=== PATIENT | female | born 1965 | race Caucasian/White ===

== ENCOUNTER 2017-11-01 06:57 | Day surgery (SDC) | payer MEDICAID ==
[~2017-11-01] VITALS: Ht 157.5 cm; Wt 80.5 kg
--- NOTE | ~2017-11-01 | OP ---
PATIENT NAME: PORSHA BURDICK MEDICAL RECORD: [id number] :63 LOCATION:[facility] ADMISSION DATE: SURGEON: AFTAB FERRARI DO DATE OF OPERATION: 11/01/2017 PROCEDURE: Colonoscopy with polypectomy. INDICATIONS FOR PROCEDURE: Family history positive for colon cancer and history of colon polyps. Her last colonoscopy was 10/17/2014 with a tubular adenomatous polyp removed. SCOPE: Olympus video pediatric colonoscope. MEDICATIONS: Propofol 430 mg IV per anesthesia. WITHDRAWAL TIME: 14 minutes. ESTIMATED BLOOD LOSS: Minimal. COMPLICATIONS: None. FINDINGS: Informed consent was given. The patient was made comfortable with the above medication. After reaching an adequate level of sedation by slow IV push, the patient was placed on her left side. A digital rectal examination was performed and was normal. The endoscope was then advanced under direct visualization through the rectum to the cecum with visualization of the appendiceal orifice and ileocecal valve. The scope was slowly withdrawn and mucosa was carefully examined. The prep quality was poor with multiple areas of difficult to visualize mucosa due to pooling of fluid along with solid debris which could not be cleared adequately. There were 2 polyps to visualize on today's examination. The first was located in the cecum. It was a benign appearing sessile polyp, which measured approximately 5 mm in diameter. It was removed using a hot snare in 1 piece and completely retrieved. A second polyp was a benign appearing sessile polyp, which measured approximately 6 mm and was located in the transverse colon. It was removed using hot snare in 1 piece and completely retrieved. Retroflexion was performed in the rectum with visualization of grade I-II internal hemorrhoids without bleeding. Again, multiple areas were difficult to visualize the entire wall of the mucosa. Attempts were made to clear the fluid and stool from the colon unsuccessfully due to solid fecal debris. The endoscope was withdrawn from the patient. The patient tolerated the procedure well and there were no complications. IMPRESSION: 1. Two benign-appearing polyps as described above removed using a hot snare. 2. Internal hemorrhoids without active bleeding. 3. Inadequate prep to completely visualize the entire colon. PLAN AND RECOMMENDATIONS: 1. Discharge home when recovery parameters are met. 2. Follow up biopsy specimen results. 3. Continue current diet. 4. Continue current medications. 5. Recall colonoscopy within 1-2 years due to the inadequate prep on today's examination, family history of colon cancer, and personal history of colon polyps. OPERATIVE REPORT [id number] PORSHA BURDICK TRANSINT:[id number] Voice Confirmation ID: [id number] DOCUMENT ID: [id number] AFTAB FERRARI DO at 1524 CC: [id number] DICTATION DATE: 11/01/17 0933 CAN INTAKE WORKER: 11/01/17 1246 [facility] 11/01/[address] [address]
[~2017-11-01 06:57] MED LIST: ATRIPLA TABLET1 TAB PO; BAYER CHEWABLE81 MG PO; CATAPRES0.1 MG PO; CELEXA10 MG PO; FLOVENT DI50 MCG/DIS INH; HYDROCHLOROTHIA25 MG PO; HYDROCODONE-APA1 TAB PO; IBUPROFEN800 MG PO; LINZESS145 MCG PO; MOBIC7.5 MG PO; PRILOSEC20 MG PO; SEROQUEL50 MG PO; TRAZODONE HCL150 MG PO; VENTOLIN HFA18 GM INH; XANAX1 MG PO
[2017-11-01] MEDS ORDERED: HYSINGLA ER20 MG PO (07:39)
[2017-11-01] MEDS ORDERED: ULTRAM50 MG PO (07:40)
[2017-11-01] MEDS ORDERED: AMITRIPTYLINE H50 MG PO (07:40)
[2017-11-01 07:45] VITALS: BP 114/78; Ht 157.5 cm; Wt 80.5 kg
[2017-11-01 08:50] LABS: BASOPHILS 0.4 % (0-2); EOSINOPHILS 1.6 % (0-7); HEMATOCRIT 38.9 % (36.0-48.0); HEMOGLOBIN 13.6 g/dL (12-16); IMMATURE GRANULOCYTES 0.2 % (0-5); LYMPHOCYTES 34.2 % (15-50); MCH 32.1 pg (26.0-34.0); MCV 91.7 fL (80.0-100.0); MEAN PLATELET VOLUME 9.8 fL (7.4-10.4); MONOCYTES 9.8 % (2-11); NEUTROPHILS 53.8 % (40-80); PLATELET COUNT 176 10x3/uL (130-400); RBC 4.24 10x6/uL (4.00-5.40); RDW 12.5 % (11.5-14.5); WBC 5.6 10x3/uL (4.8-10.8)
[2017-11-01 09:00] LABS: INR 1.1 (0.85-1.17); PROTIME 13.8 SECONDS (11.6-15.0)
[2017-11-01 09:13] LABS: ALBUMIN 3.4 g/dL (3.4-5.0); ANION GAP 15.6 mmol/L (8-16); BILIRUBIN - TOTAL 0.32 mg/dL (0.2-1.3); CALCIUM 8.6 mg/dL (8.5-10.1); CARBON DIOXIDE 21.4 mmol/L (21.0-32.0); CREATININE - SERUM 0.9 mg/dL (0.6-1.3)
== END 2017-11-01 10:20 | disposition home or self-care (01) ==
LOC: D.OPS 06:57
PROVIDERS: Anesthesiology
DX: D12.0 Benign neoplasm of cecum (principal); D12.3 Benign neoplasm of transverse colon; F17.200 Nicotine dependence, unspecified, uncomplicated; I10 Essential (primary) hypertension; K21.9 Gastro-esophageal reflux disease without esophagitis; J44.9 Chronic obstructive pulmonary disease, unspecified; Z01.812 Encounter for preprocedural laboratory examination

== ENCOUNTER 2018-02-02 09:51 | Day surgery (SDC) | payer MEDICAID ==
[~2018-02-02] VITALS: Ht 157.5 cm; Wt 78.9 kg
--- NOTE | ~2018-02-02 | OP ---
PATIENT NAME: PORSHA BURDICK MEDICAL RECORD: [id number] :63 LOCATION:D.OPS ADMISSION DATE: SURGEON: AFTAB FERRARI DO DATE OF OPERATION: 02/02/2018 PROCEDURE: Colonoscopy with polypectomy. INDICATIONS FOR PROCEDURE: Personal history of polyps and family history of colon cancer. SCOPE: Olympus video pediatric colonoscope. MEDICATIONS: Propofol 400 mg IV per anesthesia. WITHDRAWAL TIME: 9 minutes. ESTIMATED BLOOD LOSS: Minimal. COMPLICATIONS: None. FINDINGS: Informed consent was given. The patient was made comfortable with the above medication. After reaching an adequate level of sedation by slow IV push, the patient was placed on her left side. A digital rectal examination was performed and was normal. The endoscope was then advanced under direct visualization through the rectum to the cecum, confirmed by the appendiceal orifice and the ileocecal valve. The endoscope was slowly withdrawn. Mucosa was carefully examined. The prep quality was fair. There was a single polyp located in the cecum, which was benign appearing and sessile. It measured approximately 4 mm in diameter. It was removed using hot forceps in 1 piece and completely retrieved. There was evidence of mild diverticulosis involving the sigmoid colon. Retroflexion was performed in the rectum with visualization of grade II internal hemorrhoids without bleeding. The endoscope was then withdrawn from the patient. The patient tolerated the procedure well and there were no complications. IMPRESSION: 1. Single benign appearing cecal polyp removed with hot forceps. 2. Mild diverticulosis of the sigmoid colon. 3. Grade II internal hemorrhoids without bleeding. PLAN AND RECOMMENDATIONS: 1. Discharge home when recovery parameters are met. 2. Follow up biopsy specimen results. 3. High fiber diet. 4. Continue current medications. 5. Recall colonoscopy in 3 years. TRANSINT:[id number] Voice Confirmation ID: [id number] DOCUMENT ID: [id number] OPERATIVE REPORT [id number] PORSHA BURDICK AFTAB FERRARI DO at 1237 CC: [id number] DICTATION DATE: 02/02/18 1323 HOSIERY MENDER: 02/02/18 1337 [facility] 02/02/18 [place] [address]
[~2018-02-02 09:51] MED LIST changes: +AMITRIPTYLINE H50 MG PO; +HYSINGLA ER20 MG PO; +ULTRAM50 MG PO
[2018-02-02 10:09] LABS: BASOPHILS 0.4 % (0-2); EOSINOPHILS 1.6 % (0-7); HEMATOCRIT 41.4 % (36.0-48.0); IMMATURE GRANULOCYTES 0.1 % (0-5); LYMPHOCYTES 32.9 % (15-50); MCHC 36.2 g/dL (31.0-37.0); MCV 91.2 fL (80.0-100.0); MEAN PLATELET VOLUME 9.6 fL (7.4-10.4); MONOCYTES 6.8 % (2-11); NEUTROPHILS 58.2 % (40-80); PLATELET COUNT 199 10x3/uL (130-400); RBC 4.54 10x6/uL (4.00-5.40); RDW 12.5 % (11.5-14.5); WBC 6.8 10x3/uL (4.8-10.8)
[2018-02-02 11:19] VITALS: BP 122/80; Ht 157.5 cm; Wt 78.9 kg
[2018-02-02 12:22] LABS: ANION GAP 20.1 mmol/L (8-16); CALCIUM 9.3 mg/dL (8.5-10.1); CARBON DIOXIDE 18.2 mmol/L (21.0-32.0); CREATININE - SERUM 0.9 mg/dL (0.6-1.3); POTASSIUM - SERUM 4.3 mmol/L (3.5-5.1)
== END 2018-02-02 14:20 | disposition home or self-care (01) ==
LOC: D.OPS 09:51
PROVIDERS: Anesthesiology
DX: D12.0 Benign neoplasm of cecum (principal); K64.8 Other hemorrhoids; K57.90 Diverticulosis of intestine, part unspecified, without perforation or abscess without bleeding

== ENCOUNTER 2018-02-14 11:20 | Day surgery (SDC) | payer MEDICAID ==
[~2018-02-14] VITALS: Ht 157.5 cm; Wt 75.0 kg
--- NOTE | ~2018-02-14 | OP ---
PATIENT NAME: PORSHA BURDICK MEDICAL RECORD: [id number] :63 LOCATION:[facility] ADMISSION DATE: SURGEON: AFTAB FERRARI DO DATE OF OPERATION: 02/14/2018 PROCEDURE: EGD with biopsies and balloon dilation. INDICATIONS FOR PROCEDURE: Gastroesophageal reflux disease and gastroparesis. SCOPE: Olympus video gastroscope. MEDICATIONS: Propofol 350 mg IV per anesthesia. ESTIMATED BLOOD LOSS: Minimal. COMPLICATIONS: None. FINDINGS: Informed consent was given. The patient was made comfortable with the above medication. After reaching an adequate level of sedation by slow IV push, the patient was placed on her left side. The endoscope was advanced under direct visualization through the mouth to the second portion of the duodenum. The upper, middle, and lower thirds of the esophagus appeared normal. At the GE junction, there was evidence of LA class C, reflux-induced esophagitis with ulcerations present as well as a mild Schatzki ring, which was approximately 16-17 mm in diameter. Cold forceps biopsies were taken of the esophagitis and the Schatzki's ring was dilated up to 20 mm maximum diameter with a CRE dilating balloon. The endoscope was advanced beyond the GE junction into the stomach and retroflexed to view the cardia, where a small sliding type hiatal hernia was present. The fundus and body of the stomach appeared normal. In the antrum and prepyloric region, there were multiple superficial ulcerations which appeared consistent with medication induced ulcers. Random biopsies were taken from multiple areas of the stomach to submit for histopathology and to rule out the presence of H. pylori. The endoscope was advanced beyond the pylorus into the duodenum. The entire examined duodenum appeared normal. The endoscope was then withdrawn from the patient. The patient tolerated the procedure well and there were no complications. IMPRESSION: 1. LA class C, reflux-induced esophagitis. 2. Mild Schatzki's ring dilated to 20 mm maximum diameter with a CRE dilating balloon. 3. Small sliding hiatal hernia. 4. Peptic ulcer disease likely secondary to medication induced ulcerations. PLAN AND RECOMMENDATIONS: 1. Discharge home when recovery parameters are met. 2. Follow up biopsy specimen results. 3. Continue current medications. 4. The patient is already scheduled to see Dr. Vásquez for consideration of hemorrhoidectomy. We will also ask him to evaluate for possible antireflux procedure based on the fact that she continues to have severe reflux which is symptomatic despite PPI therapy. 5. If the reflux procedure is not performed, I will recommend continuing proton pump inhibitor at least 40 mg equivalent daily, consideration of adding a histamine diana in the evening time for further antacid coverage. OPERATIVE REPORT [id number] BURDICKPORSHAN TRANSINT:[id number] Voice Confirmation ID: [id number] DOCUMENT ID: [id number] AFTAB FERRARI DO at 1616 CC: [id number] DICTATION DATE: 02/14/18 1400 TRAIN CLERK: 02/14/18 1433 [facility] 02/14/18 [facility] [address] [place] [address]
[2018-02-14 12:16] LABS: INR 1.07 (0.85-1.17); PROTIME 13.3 SECONDS (11.6-15.0)
[2018-02-14 12:19] LABS: ALBUMIN 3.5 g/dL (3.4-5.0); ALKALINE PHOSPHATASE 170 U/L (46-116); ALT (SGPT) 47 U/L (10-68); APTT 29.1 SECONDS (22.8-39.4); BILIRUBIN - TOTAL 0.31 mg/dL (0.2-1.3); CALC OSMOLALITY 268 mosm/kg (275-300); CALCIUM 8.7 mg/dL (8.5-10.1); CARBON DIOXIDE 25.7 mmol/L (21.0-32.0); CHLORIDE - SERUM 105 mmol/L (98-107); CREATININE - SERUM 0.8 mg/dL (0.6-1.3); GLUCOSE 84 mg/dL (74-106); POTASSIUM - SERUM 4.5 mmol/L (3.5-5.1); PROTEIN - SERUM 8.4 g/dL (6.4-8.2); SODIUM 136 mmol/L (136-145); UREA NITROGEN 8 mg/dL (7-18); eGFR NON AFRICAN AMERICAN 79 mL/min (90-120)
[2018-02-14 12:25] LABS: HEMATOCRIT 40.4 % (36.0-48.0); HEMOGLOBIN 14.2 g/dL (12-16); MCH 32.5 pg (26.0-34.0); MCHC 35.1 g/dL (31.0-37.0); MCV 92.4 fL (80.0-100.0); MEAN PLATELET VOLUME 9.7 fL (7.4-10.4); RBC 4.37 10x6/uL (4.00-5.40); RDW 12.3 % (11.5-14.5); WBC 5.1 10x3/uL (4.8-10.8)
[2018-02-14 12:34] LABS: HCG SERUM NEGATIVE (NEGATIVE)
[2018-02-14 13:12] VITALS: BP 136/90; Ht 157.5 cm; Wt 75.0 kg
== END 2018-02-14 14:45 | disposition home or self-care (01) ==
LOC: D.OPS 11:20
PROVIDERS: Anesthesiology
DX: K21.0 Gastro-esophageal reflux disease with esophagitis (principal); K44.9 Diaphragmatic hernia without obstruction or gangrene; K22.2 Esophageal obstruction; K27.9 Peptic ulcer, site unspecified, unspecified as acute or chronic, without hemorrhage or perforation; K31.84 Gastroparesis; Z01.812 Encounter for preprocedural laboratory examination

== ENCOUNTER 2018-02-23 05:25 | Day surgery (SDC) | payer MEDICAID ==
[2018-02-22 10:20] LABS: BASOPHILS 0.4 % (0-2); EOSINOPHILS 1.4 % (0-7); HEMOGLOBIN 13.5 g/dL (12-16); LYMPHOCYTES 33.6 % (15-50); MCHC 35.5 g/dL (31.0-37.0); MCV 92.9 fL (80.0-100.0); MEAN PLATELET VOLUME 9.5 fL (7.4-10.4); MONOCYTES 6.6 % (2-11); PLATELET COUNT 172 10x3/uL (130-400); RBC 4.09 10x6/uL (4.00-5.40); RDW 12.6 % (11.5-14.5); WBC 5.6 10x3/uL (4.8-10.8)
[2018-02-22 10:34] LABS: APTT 30.8 SECONDS (22.8-39.4); INR 0.98 (0.85-1.17); PROTIME 12.6 SECONDS (11.6-15.0)
[2018-02-22 10:43] LABS: ALBUMIN 3.3 g/dL (3.4-5.0); ANION GAP 12.2 mmol/L (8-16); BILIRUBIN - TOTAL 0.25 mg/dL (0.2-1.3); CALCIUM 8.5 mg/dL (8.5-10.1); CARBON DIOXIDE 23.6 mmol/L (21.0-32.0); POTASSIUM - SERUM 3.8 mmol/L (3.5-5.1); PROTEIN - SERUM 8.6 g/dL (6.4-8.2)
[~2018-02-23] VITALS: Ht 157.5 cm; Wt 79.4 kg
[2018-02-23 06:49] VITALS: BP 141/82; Ht 157.5 cm; Wt 79.4 kg
[2018-02-23] MEDS ORDERED: MIRALAX17 GM PO (08:40)
[2018-02-23] MEDS ORDERED: VALIUM5 MG PO (08:40)
[2018-02-23] MEDS ORDERED: HYDROCODON-ACE1 EAC7 PO (08:41)
== END 2018-02-23 10:30 | disposition home or self-care (01) ==
LOC: D.OPS 05:25 → D.PAN 08:00 → D.OPS 08:45
PROVIDERS: Anesthesiology
DX: K64.9 Unspecified hemorrhoids (principal)

== ENCOUNTER 2019-02-10 10:30 | Day surgery (SDC) | payer MEDICAID ==
[2019-02-09 13:16] LABS: HEMOGLOBIN 13.3 g/dL (12-16); MCH 33.3 pg (26.0-34.0); MCHC 35.9 g/dL (31.0-37.0); MCV 92.5 fL (80.0-100.0); MEAN PLATELET VOLUME 10.1 fL (7.4-10.4); RDW 12.5 % (11.5-14.5); WBC 5.7 10x3/uL (4.8-10.8)
[2019-02-09 13:26] LABS: INR 1.09 (0.85-1.17); PROTIME 13.6 SECONDS (11.6-15.0)
[2019-02-09 13:30] LABS: ALBUMIN 3.4 g/dL (3.4-5.0); ANION GAP 13.6 mmol/L (8-16); BILIRUBIN - TOTAL 0.31 mg/dL (0.2-1.3); CALCIUM 8.4 mg/dL (8.5-10.1); CARBON DIOXIDE 23.4 mmol/L (21.0-32.0); CREATININE - SERUM 1.2 mg/dL (0.6-1.3); PROTEIN - SERUM 8.6 g/dL (6.4-8.2)
[~2019-02-10] VITALS: Ht 157.5 cm; Wt 83.5 kg
[~2019-02-10 10:30] MED LIST changes: +ATRIPLA TABLET PO; +BUSPAR10 MG PO; +CARAFATE1 G PO; +HYDROCODON-ACE1 EAC7 PO; +HYSINGLA ER30 MG PO; +MIRALAX17 GM PO; +PROTONIX20 MG PO; +UROCIT-K10 MEQ; +VALIUM5 MG PO
[2019-02-10 11:56] VITALS: BP 120/76; Ht 157.5 cm; Wt 83.5 kg
[2019-02-10] MEDS ORDERED: HYDROCODON-ACE1 EA10 PO (16:28)
[2019-02-10] MEDS ORDERED: DURICEF500 MG PO (16:31)
--- NOTE | 2019-02-10 17:43 | NUR ---
1650-REC'D FROM RR,SUPINE POSITION,IV PATENT TO RIGHT FOOT AT KVO.AWAKE AND ALERT.TOLERATING ICE CHIPS.
--- NOTE | 2019-02-10 17:44 | NUR ---
1730- IV DISCONTINUED FROM RIGHT FOOT WITH CATH INTACT, DISPOSED INTO SHARPS. TOLERATED WITHOUT COMPLAINTS. COVERED WITH BANDAID. VSS
--- NOTE | 2019-02-10 17:51 | NUR ---
7381-DISCHARGE INSTRUCTIONS REVIEWED WITH PT AND SPOUSE. COPY IN HAND.VERBALIZES UNDERSTANDING WITHOUT QUESTIONS OR CONCERNS. ESCORTED OUT BY OPS VIA W/C.
--- NOTE | 2019-02-11 09:12 | OP ---
PATIENT NAME: PORSHA BURDICK MEDICAL RECORD: [id number] :63 LOCATION:[facility] ADMISSION DATE: SURGEON: WADE STEARNS DO DATE OF OPERATION: 02/10/2019 PROCEDURE PERFORMED: Right middle finger A1 leonel release. PREOPERATIVE DIAGNOSIS: Right trigger finger, middle finger. POSTOPERATIVE DIAGNOSIS: Right trigger finger, middle finger. SURGEON: Wade Stearns DO INDICATIONS: Ms. Burdick is a 53-year-old female that has had a trigger finger for quite some time. This was catching and popping on her just unlocking herself. She has tried injections to no avail and she wanted it released. I informed her of the risks including infection, bleeding, damage to nerves and vessels, need for further surgery, and due to her HIV status, she was at increased risk for infection. She is aware that risks and signed consent. DESCRIPTION OF PROCEDURE: The patient was taken to the operative suite, given a general anesthetic and LMA was placed. The right upper extremity was prepped and draped in sterile fashion. The timeout was performed everyone was in agreement with the correct side, site, patient, and procedure. Once that was done, the incision was marked out over the distal crease in the palm and the incision was made with a #15 blade scalpel and Ragnell was used to dissect down carefully down to the A1 leonel. A1 leonel was exposed. Once it was exposed, it was released with scissors under direct loupe visualization. The tourniquet was then let down. Tendon was pulled out through the incision to ensure it did not catch; any bleeding was coagulated with a bipolar that time. Once the bipolar was used to coagulate, the site was injected with 5 mL of the 0.25% Marcaine with epinephrine and the skin was closed with 5-0 nylon in a horizontal mattress fashion. Adaptic, 4 x 4's, Kerlix, and Coban was then used to dress the wound. She was awakened and taken to recovery in stable condition. BLOOD LOSS: Minimal. COMPLICATIONS: None. TOURNIQUET: Up for 4 minutes. TRANSINT:[id number] Voice Confirmation ID: [id number] DOCUMENT ID: [id number] WADE STEARNS DO at 8714 CC: [id number] DICTATION DATE: 02/10/19 1632 COMMUNITY AFFAIRS MANAGER: 02/10/192130 [facility] 02/10/19 [facility] [address] [place] [id number]
== END 2019-02-10 17:50 | disposition home or self-care (01) ==
LOC: D.OPS 10:30 → D.PAN 14:00 → D.OPS 15:25
PROVIDERS: Anesthesiology; ATTEND Orthopaedic Surgery
DX: M65.331 Trigger finger, right middle finger (principal); Z01.812 Encounter for preprocedural laboratory examination

== ENCOUNTER → 2019-02-28 11:40 | Outpatient (CLI) | payer MEDICAID ==
[2019-02-10 11:56] VITALS: BMI 33.7
[~2019-02-28 11:40] MED LIST changes: +BIKTARVY 50-201 EACH PO; +DURICEF500 MG PO; +HYDROCODON-ACE1 EA10 PO
== END | disposition home or self-care (01) ==
LOC: D.NM 11:40
PROVIDERS: ATTEND Family Medicine
DX: K82.9 Disease of gallbladder, unspecified (principal)

== ENCOUNTER 2019-03-29 06:46 | Day surgery (SDC) | payer MEDICAID ==
[2019-03-28 13:32] LABS: BASOPHILS 0.3 % (0-2); EOSINOPHILS 0.8 % (0-7); HEMATOCRIT 38.9 % (36.0-48.0); HEMOGLOBIN 14.1 g/dL (12-16); IMMATURE GRANULOCYTES 0.1 % (0-5); LYMPHOCYTES 29.4 % (15-50); MCH 33.5 pg (26.0-34.0); MCHC 36.2 g/dL (31.0-37.0); MCV 92.4 fL (80.0-100.0); MEAN PLATELET VOLUME 9.8 fL (7.4-10.4); MONOCYTES 5.2 % (2-11); NEUTROPHILS 64.2 % (40-80); PLATELET COUNT 155 10x3/uL (130-400); RBC 4.21 10x6/uL (4.00-5.40); RDW 12.3 % (11.5-14.5); WBC 7.2 10x3/uL (4.8-10.8)
[2019-03-28 13:48] LABS: ALBUMIN 3.5 g/dL (3.4-5.0); ANION GAP 10.5 mmol/L (8-16); BILIRUBIN - TOTAL 0.3 mg/dL (0.2-1.3); CALCIUM 8.6 mg/dL (8.5-10.1); CARBON DIOXIDE 26.1 mmol/L (21.0-32.0); CREATININE - SERUM 1.2 mg/dL (0.6-1.3); POTASSIUM - SERUM 3.6 mmol/L (3.5-5.1); PROTEIN - SERUM 8.6 g/dL (6.4-8.2)
[2019-03-28 13:53] LABS: INR 1.1 (0.85-1.17); PROTIME 13.7 SECONDS (11.6-15.0)
[~2019-03-29] VITALS: Ht 157.5 cm; Wt 86.8 kg
[2019-03-29 07:45] VITALS: BP 134/87; Ht 157.5 cm; Wt 86.8 kg
--- NOTE | 2019-03-29 09:39 | NUR ---
PATIENT NOTED TO HAVING SPLOTCHY PINK REDDISH AREA ON LOWER ABDOMEN PRIOR TO PREP, JULY.
[2019-03-29] MEDS ORDERED: HYDROCODON-ACE1 EAC7 PO (09:47)
== END 2019-03-29 11:50 | disposition home or self-care (01) ==
LOC: D.OPS 06:46 → D.PAN 09:15 → D.OPS 09:15
PROVIDERS: Anesthesiology; ATTEND Surgery
DX: K81.1 Chronic cholecystitis (principal)

== ENCOUNTER 2019-07-21 05:07 | Day surgery (SDC) | payer MEDICAID ==
[2019-07-20 11:05] LABS: BASOPHILS 0.3 % (0-2); EOSINOPHILS 1.5 % (0-7); HEMATOCRIT 39.4 % (36.0-48.0); IMMATURE GRANULOCYTES 0.3 % (0-5); LYMPHOCYTES 37.1 % (15-50); MCH 32.8 pg (26.0-34.0); MCHC 35.5 g/dL (31.0-37.0); MCV 92.3 fL (80.0-100.0); MEAN PLATELET VOLUME 9.1 fL (7.4-10.4); MONOCYTES 5.2 % (2-11); NEUTROPHILS 55.6 % (40-80); PLATELET COUNT 170 10x3/uL (130-400); RBC 4.27 10x6/uL (4.00-5.40); RDW 12.9 % (11.5-14.5); WBC 7.9 10x3/uL (4.8-10.8)
[2019-07-20 11:17] LABS: ANION GAP 14.3 mmol/L (8-16); CALCIUM 8.5 mg/dL (8.5-10.1); CARBON DIOXIDE 25.1 mmol/L (21.0-32.0); CREATININE - SERUM 1.2 mg/dL (0.6-1.3); POTASSIUM - SERUM 3.4 mmol/L (3.5-5.1)
[~2019-07-21] VITALS: Ht 157.5 cm; Wt 89.4 kg
[2019-07-21] MEDS ORDERED: SYMBICORT 80-10.2 GM INH (06:16)
[2019-07-21 06:34] VITALS: BP 130/76; BMI 36.1
[2019-07-21 06:48] LABS: HCG URINE NEGATIVE (NEGATIVE)
[2019-07-21 06:49] VITALS: Ht 157.5 cm; Wt 89.4 kg
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
--- NOTE | 2019-07-21 09:38 | NUR ---
0920-REC'D FROM SURGERY.AWAKE AND ALERT,VSS,REPORTS PAIN 7/10 TO ABDOMEN. DESCRIBES SHARP AND CRAMPING. ABD SOFT NON DISTENDED. STERI STRIPS CDI. REVIEWED DISCHARGE CRITERIA. FULL LIQUID TRAY SERVED. CL IN EASY REACH.GRANDDAUGHTER AT BEDSIDE.
--- NOTE | 2019-07-21 15:30 | NUR ---
0950-VSS.TOLERATED TRAY. AMBULATED TO RESTROOM AND URINATED WITHOUT COMPLICATIONS.
--- NOTE | 2019-07-21 15:41 | NUR ---
1037-REMOVED IV FROM RIGHT HAND WITH CATH INTACT,COVERED WITH GUAZE,SECURED WITH MEDIPORE TAPE.
--- NOTE | 2019-07-21 15:46 | NUR ---
1045-REVIEWED POST OPERATIVE INSTRUCTIONS AND FOLLOW UP APPOINTMENT.VERBALIZED UNDERSTANDING. ESCORTED OUT VIA W/C WITH GRANDDAUGHTER AWAITING TO DRIVE HOME.
--- NOTE | 2019-07-24 15:42 | OP ---
PATIENT NAME: PORSHA BURDICK MEDICAL RECORD: [id number] :63 LOCATION:D.OPS ADMISSION DATE: SURGEON: SUHA LOPEZ MD DATE OF OPERATION: 07/21/2019 PREOPERATIVE DIAGNOSES: 1. Pelvic pain. 2. Thickened endometrial stripe on ultrasound. POSTOPERATIVE DIAGNOSES: 1. Pelvic pain. 2. Thickened endometrial stripe on ultrasound. 3. Extensive adhesive disease and cirrhotic-appearing liver. SURGEON: Suha Lopez MD PROCEDURES: Diagnostic laparoscopy and hysteroscopy, D&C. ANESTHESIA: General endotracheal. INTRAVENOUS FLUIDS: Per anesthesia record. HYSTEROSCOPIC FLUID LOSS: Less than 100 cc of 0.9 normal saline. FINDINGS: 1. Grossly normal-appearing cervix and endometrial cavity. 2. Extensive adhesive disease involving the small intestine and fundus of the uterus. 3. Normal-appearing ovaries. 4. Posterior cul-de-sac not identified. 5. Cirrhotic appearance of liver. SPECIMENS: Endometrial curettings. COMPLICATIONS: None apparent. DESCRIPTION OF PROCEDURE: The patient taken to the operating room where general anesthesia was achieved without any difficulty. The patient was then prepped and draped in normal sterile fashion in the dorsal lithotomy position. The bladder was drained of approximately 100 cc of clear yellow urine. A sponge stick was placed into the vagina for uterine elevation. At this point, after prep and drape, a 5-mm incision was made infraumbilically and the 5-mm bladeless trocar was used to enter the intraperitoneal space under direct visualization of the laparoscope. The patient was insufflated and opening pressure was found to be 7 mmHg. The introducer was removed and the scope was placed into the intraperitoneal space under direct visualization. Following insufflation, a second 5-mm port was placed in the midline approximately 5 cm above the pubic symphysis by making a skin incision with the 11 blade and using the 5-mm bladeless trocar to enter the intraperitoneal space under direct visualization of the laparoscope. A probe was then used to move the intestine in an attempt to visualize the pelvic organs, which was limited due to dense adhesive disease. Survey of the abdomen and pelvis was performed. The patient was then desufflated. The port was removed, and the skin was repaired in an interrupted fashion with 2-0 Vicryl. Attention was then turned to the vagina, and a Graves speculum was placed into the vagina. The cervix was grasped on its anterior lip OPERATIVE REPORT [id number] PORSHA BURDICK with a single-tooth tenaculum. The cervix was then dilated to approximately 8 mm. The hysteroscope was introduced, and survey of the endometrial canal and endocervix was performed. Curettage was then performed with #1 and Kevorkian curette with minimal return of tissue consistent with atrophic appearance. The tenaculum was then removed, followed by the speculum. The patient tolerated the procedure well, was transferred to postanesthesia recovery stable without incident. TRANSINT:[id number] Voice Confirmation ID: [id number] DOCUMENT ID: [id number] SUHA LOPEZ MD at 1542 CC: [id number] DICTATION DATE: 07/21/19929 [employer] AUTOMOBILE: 07/21/19 1253 [facility] 07/21/19 [facility] [address] [place] [address]
== END 2019-07-21 10:45 | disposition home or self-care (01) ==
LOC: D.OPS 05:07 → D.PAN 07:30 → D.OPS 10:45
PROVIDERS: ATTEND Obstetrics & Gynecology
DX: R10.2 Pelvic and perineal pain (principal); R93.89 Abnormal findings on diagnostic imaging of other specified body structures; K74.60 Unspecified cirrhosis of liver; F17.200 Nicotine dependence, unspecified, uncomplicated; I10 Essential (primary) hypertension; K21.9 Gastro-esophageal reflux disease without esophagitis; B20 Human immunodeficiency virus [HIV] disease

== ENCOUNTER 2020-09-11 07:34 | Day surgery (SDC) | payer MEDICAID ==
[~2020-09-11] VITALS: Ht 157.5 cm; Wt 83.6 kg
[~2020-09-11 07:34] MED LIST changes: +SYMBICORT 80-10.2 GM INH
[2020-09-11 08:06] LABS: ANION GAP 15.8 mmol/L (8-16); CALCIUM 8.6 mg/dL (8.5-10.1); CARBON DIOXIDE 23.6 mmol/L (21.0-32.0); POTASSIUM - SERUM 3.4 mmol/L (3.5-5.1)
[2020-09-11 08:09] LABS: HEMATOCRIT 39.5 % (36.0-48.0); HEMOGLOBIN 13.4 g/dL (12-16); MCH 31.2 pg (26.0-34.0); MCHC 33.9 g/dL (31.0-37.0); MCV 92.1 fL (80.0-100.0); MEAN PLATELET VOLUME 9.5 fL (7.4-10.4); RBC 4.29 10x6/uL (4.00-5.40); WBC 6.3 10x3/uL (4.8-10.8)
[2020-09-11 08:44] VITALS: Ht 157.5 cm; Wt 83.6 kg
--- NOTE | 2020-09-11 12:47 | NUR ---
IV D/C'D WITH CANNULA INTACT, PRESSURE HELD AND DRSG PLACED. DISCHARGE INSTRUCTIONS GIVEN AND PT VERBALIZED AN UNDERSTANDING.
--- NOTE | 2020-09-12 14:43 | OP ---
PATIENT NAME: PORSHA BURDICK MEDICAL RECORD: [id number] :63 LOCATION:[facility]Y ADMISSION DATE: SURGEON: JAS UGALDE MD DATE OF OPERATION: 09/11/2020 PROCEDURE: Colonoscopy. PREOPERATIVE DIAGNOSIS: Family history of colon cancer and personal history of polyps. MEDICATIONS: Propofol per anesthesia. Colonoscopy was performed. The colonoscope was inserted through the rectum and advanced to the cecum, identified by the ileocecal valve and the appendiceal orifice. The quality of the prep was good. There were small internal hemorrhoids viewed on retroflexion. The remainder of the exam was normal. The patient tolerated the procedure well. There were no immediate complications. FINAL DIAGNOSES: Small internal hemorrhoids. Remainder of exam normal. PLAN: Advance diet. RECOMMENDATIONS: Repeat colonoscopy in 3-5 years given family history of colon cancer and personal history of polyps. TRANSINT:[id number] Voice Confirmation ID: [id number] DOCUMENT ID: [id number] JAS UGALDE MD at 1443 CC: [id number] DICTATION DATE: 09/11/20 1141 BUSINESS UNIT MANAGER: 09/11/20 2144 [facility] 09/11/20 [id number] [place] [address]
== END 2020-09-11 12:15 | disposition home or self-care (01) ==
LOC: D.OPS 07:34
PROVIDERS: Anesthesiology; ATTEND Internal Medicine Gastroenterology
DX: Z86.010 Personal history of colon polyps (principal); Z80.0 Family history of malignant neoplasm of digestive organs; K64.8 Other hemorrhoids; K21.9 Gastro-esophageal reflux disease without esophagitis; K57.30 Diverticulosis of large intestine without perforation or abscess without bleeding; B18.2 Chronic viral hepatitis C; R19.4 Change in bowel habit

== ENCOUNTER → 2020-11-05 07:03 | Outpatient (CLI) | payer MEDICAID ==
[2020-09-11 08:44] VITALS: BMI 33.7
[~2020-11-05 07:03] MED LIST changes: +CYCLOBENZAPRINE10 MG PO; +ROXICODONE15 MG PO; +TRELEGY ELLIPT1 EACH INH
== END | disposition home or self-care (01) ==
LOC: D.MRI 07:03
PROVIDERS: ATTEND Nurse Practitioner Family
DX: N28.9 Disorder of kidney and ureter, unspecified (principal)

== ENCOUNTER 2020-11-07 05:50 | Day surgery (SDC) | payer MEDICAID ==
[2020-11-06 09:57] LABS: BASOPHILS 0.4 % (0-2); EOSINOPHILS 1.8 % (0-7); HEMATOCRIT 37.6 % (36.0-48.0); HEMOGLOBIN 13.2 g/dL (12-16); IMMATURE GRANULOCYTES 0.2 % (0-5); LYMPHOCYTE ABS# 2.07 10x3/uL (1.18-3.74); LYMPHOCYTES 38.1 % (15-50); MCH 32.1 pg (26.0-34.0); MCHC 35.1 g/dL (31.0-37.0); MCV 91.5 fL (80.0-100.0); MEAN PLATELET VOLUME 9.9 fL (7.4-10.4); MONOCYTES 8.8 % (2-11); NEUTROPHIL ABS# 2.76 10x3/uL (1.56-6.13); NEUTROPHILS 50.7 % (40-80); PLATELET COUNT 156 10x3/uL (130-400); RBC 4.11 10x6/uL (4.00-5.40); RDW 13.3 % (11.5-14.5); WBC 5.4 10x3/uL (4.8-10.8)
[2020-11-06 10:10] LABS: CALCIUM 8.8 mg/dL (8.5-10.1); CARBON DIOXIDE 24.5 mmol/L (21.0-32.0); POTASSIUM - SERUM 3.5 mmol/L (3.5-5.1)
[~2020-11-07] VITALS: Ht 157.5 cm; Wt 91.6 kg
[~2020-11-07 05:50] MED LIST changes: -CYCLOBENZAPRINE10 MG PO; -ROXICODONE15 MG PO
[2020-11-07 06:51] VITALS: BP 111/50; Ht 157.5 cm; Wt 91.6 kg
[2020-11-07] MEDS ORDERED: ROXICODONE15 MG PO (10:05)
[2020-11-07] MEDS ORDERED: CYCLOBENZAPRINE10 MG PO (10:06)
--- NOTE | 2020-11-07 11:06 | NUR ---
PAIN MED GIVEN PER REQUEST 1128 ASSISTED PT TO VOID; DC INSTRUCTIONS GIVEN TO PT AND , VERABLIZED UNDERSTANDING. INHALER & PORT SUPPLY PLACED IN DC ENVELOPE. 1209 PIV DC'D, CATHETER INTACT, ASSISTED PT TO DRESS. 1215 PT DC'D VIA WC ACCOMPANIED BY ALBINO TO POV WITH DRIVING. ALL BELONGINGS AND DC PACKET WITH THEM.
--- NOTE | 2020-11-08 13:31 | OP ---
PATIENT NAME: PORSHA BURDICK MEDICAL RECORD: [id number] :63 LOCATION:D.OPS ADMISSION DATE: SURGEON: REGAN DIANA MD DATE OF OPERATION: 11/07/2020 PREOPERATIVE DIAGNOSES: 1. Ventral incisional hernia. 2. Human immunodeficiency virus. 3. Chronic obstructive pulmonary disease. 4. Tobacco dependence syndrome. 5. Hypertension. 6. Poor vascular access. POSTOPERATIVE DIAGNOSES: 1. Ventral incisional hernia. 2. Human immunodeficiency virus. 3. Chronic obstructive pulmonary disease. 4. Tobacco dependence syndrome. 5. Hypertension. 6. Poor vascular access. PROCEDURES: 1. Left subclavian vein PowerPort placement. 2. Fluoroscopic interpretation. 3. Ventral hernia repair with [address] mesh. SURGEON: Rgean Diana MD REPORT OF PROCEDURE: The patient's abdomen and chest were prepped and draped in sterile fashion. A needle was used to cannulate the left subclavian vein and a guidewire was advanced with ease. Fluoroscopy was used to note that the wire was in good position in the venous system. A skin incision was made on the left superior lateral chest and the subcutaneous pouch was made over the pectoral fascia. The catheter was tunneled between this pouch and the wire exit site. The port was then sutured to the pectoral fascia with interrupted 3-0 Prolenes times 2. The catheter was then cut with a beveled tip at 20 cm. The dilator trocar device was placed over the wire and the wire and dilator were removed. The catheter tip was advanced through the trocar and the trocar was then removed. The catheter tip was noted to be resting in good position in the superior vena cava. The catheter aspirated nonpulsatile dark blood and flushed easily with heparinized saline. The subcutaneous tissues were reapproximated with interrupted 3-0 Vicryl and the skin was closed with running subcutaneous 5-0 Monocryl. We then approached the patient's abdomen. A Veress needle was inserted in the left upper quadrant and the abdomen was insufflated. A 5-mm Visiport trocar was inserted in the left lateral abdomen. Upon doing this, we could see the Veress needle and there was no sign of any injury to bowel or surrounding structures. The Veress needle was then removed as we inspected the patient's right lower quadrant. We could see there was a large hernia defect present. This was very wide mouth and appeared to be most consistent with a ventral incisional hernia as opposed to an inguinal hernia. I elected just to go ahead and open up because there was some adherent small bowel present to the inferior wall of the hernia defect. At this point, the insufflation and the port were removed. A transverse incision through the most lateral aspect of the right side of the Pfannenstiel incision was reopened and electrocautery was used to dissect through the subcutaneous tissues to the hernia. The hernia sac was OPERATIVE REPORT [id number] PORSHA BURDICK opened up and we entered the peritoneal cavity. We were able to dissect the hernia sac back towards the fascial edges. The patient had just a lot of laxity to the tissue and it was difficult to find fascia at first. We ended up undermining in all directions and found fascial tissue. The fascia itself was still very lax. The adherent small bowel on the inferior aspect of the hernia sac was dissected free using sharp dissection. There were a couple of deserosalized areas on the small bowel, but no signs of any full thickness injury. The deserosalized tissue was oversewn with a Lemberted 3-0 silks. After we pushed the bowel back into the abdominal cavity, I was able to visualize the patient's inguinal ligament and the fascial defect was measured out at 5 cm. An [address] mesh was inserted in an underlay fashion and was sutured down inferiorly to the inguinal ligament and then 0 Prolenes were used to suture the mesh into the surrounding fascia with interrupted 0 Prolenes. The mesh was then irrigated out with normal saline. The fascia was then closed with running #1 looped PDS times 2. This got rid of the laxity in the surrounding tissues. The wound was inspected one last time to assure there was no sign of any bleeding. The subcutaneous tissues were reapproximated with interrupted 3-0 Vicryl and the skin was closed with running subcutaneous 5-0 Monocryl. COMPLICATIONS: None. CONDITION: Stable. ANESTHESIA: General endotracheal and local. BLOOD LOSS: 30 mL. TRANSINT:[id number] Voice Confirmation ID: [id number] DOCUMENT ID: [id number] REGAN DIANA MD at 1331 CC: ALYSIA RINCON MD and SUE LEIVA MD [id number] DICTATION DATE: 11/07/20 1012 SEO MARKETING SPECIALIST: 11/07/20 1201 [facility] 11/07/20 [facility] [address] [place] [address]
== END 2020-11-07 12:15 | disposition home or self-care (01) ==
LOC: D.OPS 05:50
PROVIDERS: ATTEND Surgery
DX: K43.2 Incisional hernia without obstruction or gangrene (principal); B20 Human immunodeficiency virus [HIV] disease; J44.9 Chronic obstructive pulmonary disease, unspecified; F17.200 Nicotine dependence, unspecified, uncomplicated; I10 Essential (primary) hypertension